=== PATIENT | male | born 1960 | race Caucasian/White ===

== ENCOUNTER 2018-03-23 08:48 | Emergency (ER) | payer BC ==
[2018-03-23] MEDS ORDERED: NORMAL SALINE 1000 ML 1,000 ML IV ONE (08:59)
--- NOTE | 2018-03-23 08:59 | ER Document Report ---
ED General - General Chief Complaint: Possible Kidney Stone Stated Complaint: ABDOMINAL PAIN/BLOOD IN URINE Time Seen by Provider: 03/23/18 08:58 Notes: Patient is a 57-year-old male with history of kidney stones that presents to the emergency department for chief complaint of left flank pain. Patient reports that pain started this morning early on, described as severe and sharp, and at the time rated as a 9 out of 10, radiated from the left flank towards the groin. He states he is also noticed blood in the urine over the past 6 weeks, but has not had associated pain. He did see his primary care physician on to have this worked up, and they ordered outpatient studies, but the pain this morning he had made him come to the emergency department. He was not having pain previously. He states that this time though the pain has since resolved to a 2 out of 10, as a dull aching sensation. He denies any associated fevers, ch ills, night sweats, chest pain, shortness of breath, lightheadedness, nausea, vomiting, diarrhea. Past Medical History: Kidney stones, hypertension, GERD Past Surgical History: Cardiac ablation Social History: Admits to smoking cigarettes, admits to occasional alcohol use denies illicit drug use. Family History: Reviewed and noncontributory for presenting illness Allergies: Reviewed, see documented allergy list. REVIEW OF SYSTEMS: Other than noted above, the 12 point review of systems was reviewed with the patient and were negative, all pertinent findings are included in the HPI. PHYSICAL EXAMINATION: Vital signs reviewed, nursing noted reviewed. GENERAL: Well-appearing, well-nourished and in no acute distress. HEAD: Atraumatic, normocephalic. EYES: Eyes appear normal, extraocular movements intact, sclera anicteric, conjunctiva are normal. ENT: nares patent, oropharynx clear without exudates. Moist mucous membranes. NECK: Normal range of motion, supple without lymphadenopathy LUNGS: Breath sounds clear to auscultation bilaterally and equal. No wheezes rales or rhonchi. HEART: Regular rate and rhythm without murmurs ABDOMEN: Soft, very mild CVA tenderness, normoactive bowel sounds. No rebound, guarding, or rigidity. No masses appreciated. EXTREMITIES: Nontender, good range of motion, no pitting or edema. NEUROLOGICAL: No focal neurological deficits. Moves all extremities spontaneously Motor and sensory grossly intact on exam. PSYCH: Normal mood, normal affect. SKIN: Warm, Dry, normal turgor, no rashes or lesions noted on exposed skin TRAVEL OUTSIDE OF THE [place] IN LAST 30 DAYS: No - Related Data Allergies/Adverse Reactions: No Known Allergies Allergy (Verified 03/23/18 08:49) Past Medical History - Social History Smoking Status: Current Every Day Smoker Family History: Reviewed & Not Pertinent Physical Exam - Vital signs Vitals: Temp Pulse Resp BP Pulse Ox 98.2 F 78 14 143/94 H 98 03/23/18 08:53 03/23/18 08:53 03/23/18 08:53 03/23/18 08:53 03/23/18 08:53 Course - Re-evaluation Re-evalutation: Patient seen and examined vital signs reviewed. Laboratory data and imaging were ordered as appropriate for the patient's pre senting symptoms and complaint, with consideration of any critical or life threatening conditions that may be associated with their obtained history and exam as noted above. Patient was treated with IV fluids and Toradol Results were reviewed when available and demonstrated normal renal function, no anemia, he did have a leukocytosis, urinalysis was ordered, and CT of the abdomen and pelvis without contrast did demonstrate a 6 mm x 6 mm x 9 mm stone noted in the left proximal ureter. Urine was grossly bloody. UA reviewed, no evidence of infection, no bacteria, leuk esterase or nitrites, antibiotics not indicated at this time. The patient was re-evaluated and was stable, pain was controlled. Evaluation was most consistent with left ureteral stone, gross hematuria, I discussed with the patient results, he states he does have a urologist, that he can call tomorrow, to set up an appointment, I believe this patient will likely need lithotripsy as he does have a large proximal ureteral stone, he was agreeable with this plan of care, was given instruction including development of fevers, worsening pain, not controlled at home to return to the emergency department, given a prescription for Flomax, he states that he has pain medication at home to take if needed. Results were discussed with the patient at this point, after careful consideration I feel that that patient can be discharged from the emergency department, the patient was educated treatments and reasons to return to the emergency department based on their presumed diagnosis as noted above, they were advised to followup with a primary care physician in 2-3 days. Patient was agreeable to plan of care. *Note is created using voice recognition software and may contain spelling, syntax or grammatical errors. Laboratory 03/23/18 03/23/18 09:20 09:20 WBC 15.8 H RBC 5.58 H Hgb 17.4 H Hct 49.8 MCV 89 MCH 31.2 MCHC 34.9 RDW 13.1 Plt Count 199 Total Counted 100 Seg Neutrophils % Not Reportable Seg Neuts % (Manual) 88 H Lymphocytes % Not Reportable Lymphocytes % (Manual) 7 L Monocytes % Not Reportable Monocytes % (Manual) 3 Eosinophils % Not Reportable Eosinophils % (Manual) 0 Basophils % Not Reportable Basophils % (Manual) 2 Absolute Neutrophils Not Reportable Abs Neuts (Manual) 13.9 H Absolute Lymphocytes Not Reportable Abs Lymphs (Manual) 1.1 Absolute Monocytes Not Reportable Abs Monocytes (Manual) 0.5 Absolute Eosinophils Not Reportable Absolute Eos (Manual) 0.0 Absolute Basophils Not Reportable Abs Basophils (Manual) 0.3 H Platelet Comment ADEQUATE RBC Morph Comment NORMO-CYTIC/CHROMIC Sodium 138.1 Potassium 4.4 Chloride 103 Carbon Dioxide 24 Anion Gap 11 BUN 17 Creatinine 1.04 Est GFR ( Amer) > 60 Est GFR (Non-Af Amer) > 60 Glucose 163 H Calcium 10.0 Total Bilirubin 0.6 Direct Bilirubin 0.2 Neonat Total Bilirubin Not Reportable Neonat Direct Bilirubin Not Reportable Neonat Indirect Bili Not Reportable AST 21 ALT 15 L Alkaline Phosphatase 68 Total Protein 6.6 Albumin 4.6 Lipase 43[address] 03/23/18 09:43 IMPRESSION: 1. Evidence of a 0.6 x 0.6 x 0.9 cm mid left ureteral calculus with associated ectasia left upper collecting system and proximal left ureter. 2. Prostatomegaly. - Vital Signs Vital signs: Temp Pulse Resp BP Pulse Ox 98.3 F 66 18 142/96 H 97 03/23/18 11:24 03/23/18 11:24 03/23/18 11:24 03/23/18 11:24 03/23/18 11:24 - Laboratory Result Diagrams: 03/23/18 09:20 03/23/18 09:20 Laboratory results interpreted by me: 03/23/18 03/23/18 03/23/18 09:20 09:20 10:30 WBC 15.8 H RBC 5.58 H Hgb 17.4 H Seg Neuts % (Manual) 88 H Lymphocytes % (Manual) 7 L Abs Neuts (Manual) 13.9 H Abs Basophils (Manual) 0.3 H Glucose 163 H ALT 15 L Urine Protein 100 H Urine Glucose (UA) 50 H Urine Blood LARGE H Discharge - Discharge Clinical Impression: Ureteral stone Hematuria Qualifiers: Hematuria type: gross Qualified Code(s): R31.0 - Gross hematuria Condition: Stable Disposition: HOME, SELF-CARE Instructions: Kidney Stone ([facility]) Additional Instructions: Please take the prescribed Flomax as directed, daily, and also take the Zofran if needed for nausea, and take your previously prescribed pain medication if needed at home, please follow-up with urology, if you cannot get a hold of your urologist or get an early enough appointment, I provided a list of the urology groups in the area. [email or web address] [address] [email or web address] [address] [facility] [address] [email or web address] [address] If you develop fevers, sweats, or pain not controlled at home, or continued vomiting, do not hesitate to return immediately to the emergency department to be reevaluated. Prescriptions: Ondansetron [Zofran Odt 4 mg Tablet] 1 tab PO Q8H PRN #15 tab.rapdis PRN Reason: For Nausea/Vomiting Tamsulosin HCl [Flomax 0.4 mg Cap.sr] 0.4 mg PO DAILY #7 cap.sr.24h
[2018-03-23] MEDS ORDERED: KETOROLAC TROMETHAMINE INJ/PF 30 MG/1 ML SDV IV ONE (09:13)
[2018-03-23 09:53] LABS: ALANINE AMINOTRANSFERASE 15 U/L (21-72); ALBUMIN 4.6 g/dL (3.5-5.0); ALKALINE PHOSPHATASE 68 U/L (38-126); ANION GAP 11 (5-19); ASPARTATE AMINO TRANSFERASE 21 U/L (17-59); BILIRUBIN,DIRECT 0.2 mg/dL (0.0-0.4); BILIRUBIN,TOTAL 0.6 mg/dL (0.2-1.3); BLOOD UREA NITROGEN 17 mg/dL (7-20); CARBON DIOXIDE 24 mmol/L (22-30); CHLORIDE 103 mmol/L (98-107); GLUCOSE 163 mg/dL (75-110); LIPASE 43.2 U/L (23-300); POTASSIUM 4.4 mmol/L (3.6-5.0); SODIUM 138.1 mmol/L (137-145); TOTAL PROTEIN 6.6 g/dL (6.3-8.2)
[2018-03-23 09:55] LABS: HEMATOCRIT 49.8 % (37.9-51.0); HEMOGLOBIN 17.4 g/dL (13.5-17.0); MEAN CORPUSCULAR HEMOGLOBIN 31.2 pg (27.0-33.4); MEAN CORPUSCULAR HGB CONC 34.9 g/dL (32.0-36.0); MEAN CORPUSCULAR VOLUME 89 fl (80-97); PLATELET COUNT 199 10^3/uL (150-450); RED BLOOD COUNT 5.58 10^6/uL (4.35-5.55); RED CELL DISTRIBUTION WIDTH 13.1 % (11.5-14.0); WHITE BLOOD COUNT 15.8 10^3/uL (4.0-10.5)
[2018-03-23 10:14] LABS: ABSOLUTE LYMPHOCYTES# (MANUAL) 1.1 10^3/uL (0.5-4.7); ABSOLUTE MONOCYTES # (MANUAL) 0.5 10^3/uL (0.1-1.4); ABSOLUTE NEUTROPHILS# (MANUAL) 13.9 10^3/uL (1.7-8.2); BASOPHILS % (MANUAL) 2 % (0-2); EOSINOPHILS % (MANUAL) 0 % (0-6); LYMPHOCYTES % (MANUAL) 7 % (13-45); MONOCYTES % (MANUAL) 3 % (3-13); PLATELET COMMENT ADEQUATE; RBC MORPHOLOGY COMMENT NORMO-CYTIC/CHROMIC; SEGMENTED NEUTROPHILS % (MAN) 88 % (42-78); TOTAL CELLS COUNTED 100
--- NOTE | 2018-03-23 10:19 | RADIOLOGY REPORT (SQ) ---
EXAM DESCRIPTION: CT LTD RENAL STONE PROTOCOL ON COMPLETED DATE/TIME: 03/23/2018 10:00 am REASON FOR STUDY: left flank pain, hematuria COMPARISON: None. TECHNIQUE: CT scan of the abdomen and pelvis performed without intravenous or oral contrast. Images reviewed with lung, soft tissue, and bone windows. Reconstructed coronal and sagittal MPR images revi ewed. All images stored on PACS. All CT scanners at this facility use dose modulation, iterative reconstruction, and/or weight based d osing when appropriate to reduce radiation dose to as low as reasonably achievable (ALARA). [facility]: Dose Right [facility]: CareDose [facility]: Dose Right [facility]: Teradose 4D [facility]: [employer] RADIATION DOSE: CT Rad equipment meets quality standard of care and radiation dose reduction techniq ues were employed. CTDIvol: 10.6 mGy. DLP: 640 mGy-cm.mGy. LIMITATIONS: None. FINDINGS: LOWER CHEST: Chronic interstitial changes in lung bases. NON-CONTRASTED LIVER, SPLEEN, ADRENALS: Liver: No abnormality. Spleen: No abnormality. Adrenals: No abnormality. PANCREAS: No abnormality. GALLBLADDER: No abnormality. RIGHT KIDNEY AND URETER: No abnormality. LEFT KIDNEY AND URETER: There is a ectasia of the left upper collecting system and proximal left uret er down to a 0.6 x 0.6 by 0.9 cm calculus mid left ureter. Soft tissue stranding surrounds the left kidney and proximal left ureter. AORTA AND RETROPERITONEUM: Atherosclerotic changes of the abdominal aorta and iliac vessels. No retr operitoneal masses or adenopathy. BOWEL AND PERITONEAL CAVITY: Colonic diverticulosis descending and rectosigmoid colon. Normal append ix. PELVIS, BLADDER, AND ABDOMINAL WALL:Prostatic: No abnormality. Urinary bladder: No abnormality. BON ES: No significant findings. OTHER: No other significant finding. IMPRESSION: 1. Evidence of a 0.6 x 0.6 x 0.9 cm mid left ureteral calculus with associated ectasia left upper collecting system and proximal left ureter. 2. Prostatomegaly. COMMENT: Quality ID # [id number]: Final reports with documentation of one or more dose reduction techniques (e.g., Automated exposure control, adjustment of the mA and/or kV according to patient size, use of iterative reconstruction technique) TECHNICAL DOCUMENTATION: JOB ID: [id number] SC-[id number] 2010 [employer]- All Rights Reserved Reading location - IP/workstation name: [email or web address]
[2018-03-23 10:58] LABS: APPEARANCE,URINE CLEAR; BILIRUBIN,URINE NEGATIVE (NEGATIVE); GLUCOSE, URINE 50 mg/dL (NEGATIVE); KETONES,URINE NEGATIVE (NEGATIVE); LEUKOCYTE ESTERASE,URINE NEGATIVE (NEGATIVE); NITRITE,URINE NEGATIVE (NEGATIVE); PROTEIN,URINE 100 mg/dL (NEGATIVE); URINE SPECIFIC GRAVITY 1.011; UROBILINOGEN,URINE NEGATIVE mg/dL (<2.0)
[2018-03-23 11:03] LABS: COLOR,URINE RED
[2018-03-23 11:28] VITALS: BP 142/96
== END 2018-03-23 11:28 | disposition home or self-care (01) ==
LOC: ER 08:48
DX: N20.1 Calculus of ureter (principal); N40.1 Benign prostatic hyperplasia with lower urinary tract symptoms; R31.0 Gross hematuria; I10 Essential (primary) hypertension; F17.210 Nicotine dependence, cigarettes, uncomplicated; D72.829 Elevated white blood cell count, unspecified
CPT/HCPCS: 99284; 96361; 96374; 36415; 83690; 85025; 80053; 81001; 76380; J1885; J7030

== ENCOUNTER 2019-12-19 07:24 | Emergency (ER) | payer BC ==
--- NOTE | 2019-12-19 08:31 | EKG REPORT ---
SEVERITY:- ABNORMAL ECG - SINUS RHYTHM VENTRICULAR PREMATURE COMPLEX LEFT ATRIAL ABNORMALITY LEFT BUNDLE BRANCH BLOCK : Confirmed by: Kirby Macedo MD 19-Dec-2019 08:30:17
[2019-12-19 08:56] LABS: APPEARANCE,URINE CLEAR; BILIRUBIN,URINE NEGATIVE (NEGATIVE); COLOR,URINE YELLOW; GLUCOSE, URINE NEGATIVE (NEGATIVE); KETONES,URINE NEGATIVE (NEGATIVE); LEUKOCYTE ESTERASE,URINE TRACE (NEGATIVE); NITRITE,URINE NEGATIVE (NEGATIVE); PROTEIN,URINE NEGATIVE (NEGATIVE); URINE SPECIFIC GRAVITY 1.009; UROBILINOGEN,URINE NEGATIVE mg/dL (<2.0)
[2019-12-19 08:58] LABS: ABSOLUTE BASOPHILS # (AUTO) 0.1 10^3/uL (0.0-0.2); ABSOLUTE EOSINOPHILS # (AUTO) 0.1 10^3/uL (0.0-0.6); ABSOLUTE MONOCYTES (AUTO) 0.7 10^3/uL (0.1-1.4); ABSOLUTE NEUT (AUTO) 9.6 10^3/uL (1.7-8.2); BASOPHILS % (AUTO) 0.5 % (0-2); HEMATOCRIT 51.9 % (37.9-51.0); HEMOGLOBIN 18.3 g/dL (13.5-17.0); LYMPHOCYTES % (AUTO) 8.8 % (13-45); MEAN CORPUSCULAR HEMOGLOBIN 31.9 pg (27.0-33.4); MEAN CORPUSCULAR HGB CONC 35.3 g/dL (32.0-36.0); MEAN CORPUSCULAR VOLUME 90 fl (80-97); PLATELET COUNT 165 10^3/uL (150-450); RED BLOOD COUNT 5.74 10^6/uL (4.35-5.55); RED CELL DISTRIBUTION WIDTH 13.4 % (11.5-14.0); SEGMENTED NEUTROPHILS % (AUTO) 83.7 % (42-78); TOTAL CELLS COUNTED % (AUTO) 100 %; WHITE BLOOD COUNT 11.5 10^3/uL (4.0-10.5)
[2019-12-19 09:13] LABS: ALBUMIN 4.4 g/dL (3.5-5.0); ALKALINE PHOSPHATASE 66 U/L (38-126); ANION GAP 10 (5-19); ASPARTATE AMINO TRANSFERASE 21 U/L (17-59); BILIRUBIN,DIRECT 0.3 mg/dL (0.0-0.4); BILIRUBIN,TOTAL 1.3 mg/dL (0.2-1.3); BLOOD UREA NITROGEN 14 mg/dL (7-20); CALCIUM 9.5 mg/dL (8.4-10.2); CARBON DIOXIDE 23 mmol/L (22-30); CHLORIDE 105 mmol/L (98-107); CREATINE KINASE 109 U/L (55-170); GLUCOSE 132 mg/dL (75-110); POTASSIUM 4.5 mmol/L (3.6-5.0); TOTAL PROTEIN 6.6 g/dL (6.3-8.2)
--- NOTE | 2019-12-19 09:13 | RADIOLOGY REPORT (SQ) ---
EXAM DESCRIPTION: CHEST SINGLE VIEW IMAGES COMPLETED DATE/TIME: 12/19/2019 8:42 am REASON FOR STUDY: bed 7 short of breath COMPARISON: None. FINDINGS: One view chest AP portable upright. Cardiomegaly with mild interstitial edema. No suggestion of consolidating pneumonia or large effusio n. No pneumothorax. TECHNICAL DOCUMENTATION: JOB ID: [id number] Reading location - IP/workstation name: [email or web address]
[2019-12-19 09:23] LABS: CREATINE KINASE MB 1.74 ng/mL (<4.55); TROPONIN I 0.014 ng/mL
[2019-12-19] MEDS ORDERED: FUROSEMIDE INJ/PF 40 MG/4 ML SDV IV ONE (11:49)
[2019-12-19] MEDS ORDERED: NITROGLYCERIN 2% OINTMENT 1 GM PACKET TP ONE (11:49)
[2019-12-19] MEDS ORDERED: ONDANSETRON HCL INJ/PF 4 MG/2 ML SDV IV ONE (11:49)
--- NOTE | 2019-12-19 14:14 | ER Document Report ---
Entered by MARCY DEWITT SCRIBE 12/19/19 0832 Acting as scribe for:OVIDIO GOMEZ MD ED Respiratory Problem - General Chief Complaint: Shortness Of Breath Stated Complaint: SHORTNESS OF BREATH/CHEST PRESSURE Mode of Arrival: Ambulatory Information source: Patient Notes: This 59 year old male patient with a history of hypertension presents to the ED today via POV for evaluation of sudden onset shortness of breath and chest tightness that started around 0200 this morning. Patient reports shortness of breath when he is lying down, stating that it feels like he can't breath in. No chest tightness at this time. He mentions that he washed and painted his boat yesterday which is not unusual for him. He is a current every day smoker. Denies fever, nausea, vomiting, or diarrhea. TRAVEL OUTSIDE OF THE [place] IN LAST 30 DAYS: No - Related Data Allergies/Adverse Reactions: No Known Allergies Allergy (Verified 12/19/19 08:20) Past Medical History - General Information source: Patient, [facility] Records - Social History Smoking Status: Current Every Day Smoker Smoking Education Provided: No Family History: Reviewed & Not Pertinent Patient has suicidal ideation: No Patient has homicidal ideation: No - Past Medical History Cardiac Medical History: Reports: Hx Hypertension Renal/ Medical History: Reports: Hx Kidney Stones GI Medical History: Reports: Hx Gastroesophageal Reflux Disease Past Surgical History: Reports: Hx Cardiac Surgery - ablation for nodes Review of Systems - Review of Systems Constitutional: See HPI. denies: Fever EENT: No symptoms reported Cardiovascular: See HPI, Chest pain - tightness, Orthopnea Respiratory: See HPI, Short of breath Gastrointestinal: See HPI. denies: Diarrhea, Nausea, Vomiting Genitourinary: No symptoms reported Male Genitourinary: No symptoms reported Musculoskeletal: No symptoms reported Skin: No symptoms reported Hematologic/Lymphatic: No symptoms reported Neurological/Psychological: No symptoms reported -: Yes All other systems reviewed and negative Physical Exam - Vital signs Vitals: Temp Pulse Resp BP Pulse Ox 97.8 F 93 18 126/89 H 95 12/19/19 07:37 12/19/19 07:37 12/19/19 07:37 12/19/19 07:37 12/19/19 07:37 - General General appearance: Alert - Speaks in a raspy voice due to recurrent GERD per patient In distress: None - HEENT Head: Normocephalic, Atraumatic Eyes: Normal Pupils: PERRL - Respiratory Respiratory status: No respiratory distress Chest status: Nontender Breath sounds: Rales - Minimal rales in the bases Chest palpation: Normal - Cardiovascular Rhythm: Regular Heart sounds: Normal auscultation Murmur: No - Abdominal Inspection: Normal Distension: No distension Bowel sounds: Normal Tenderness: Nontender - Abdomen soft Organomegaly: No organomegaly - Back Back: Normal, Nontender - Extremities General upper extremity: Normal inspection General lower extremity: Normal inspection. No: Edema - Neurological Neuro grossly intact: Yes Orientation: AAOx4 Hortencia Coma Scale Eye Opening: Spontaneous Webster Coma Scale Verbal: Oriented Webster Coma Scale Motor: Obeys Commands Webster Coma Scale Total: 15 - Psychological Associated symptoms: Normal affect, Normal mood - Skin Skin Temperature: Warm Skin Moisture: Dry Skin Color: Normal Course - Re-evaluation Re-evalutation: 12/19/19 11:48 Received faxed medical records from [facility]. Patient had x2 EKGs done in 04/2018 that showed a left bundle branch block. 12/19/19 14:09 Patient resting comfortably not showing any acute processes this time patient is breathing clear voice is clear not showing any signs of distress denies any chest pain. - Vital Signs Vital signs: Temp Pulse Resp BP Pulse Ox 97.8 F 93 20 126/95 H 95 12/19/19 07:37 12/19/19 07:37 12/19/19 10:30 12/19/19 10:30 12/19/19 10:30 12/19/19 14:10 Vital signs stable blood pressure 126/95 no diastolic hypertension noted. - Laboratory Result Diagrams: 12/19/19 08:15 12/19/19 08:15 Laboratory results interpreted by me: 12/19/19 12/19/19 12/19/19 08:15 08:15 08:15 WBC 11.5 H RBC 5.74 H Hgb 18.3 H Hct 51.9 H Lymph % (Auto) 8.8 L Absolute Neuts (auto) 9.6 H Seg Neutrophils % 83.7 H Glucose 132 H NT-Pro-B Natriuret Pep Ur Leukocyte Esterase TRACE H 12/19/19 08:15 WBC RBC Hgb Hct Lymph % (Auto) Absolute Neuts (auto) Seg Neutrophils % Glucose NT-Pro-B Natriuret Pep 1250 H Ur Leukocyte Esterase Laboratory shows a BNP of 1250 and borderline elevations in troponin at 0.014 an d repeated was 0.017. - Diagnostic Test Radiology reviewed: Image reviewed, Reports reviewed Radiology results interpreted by me: 12/19/19 14:11 Test x-ray shows mild interstitial edema and cardiomegaly. No evidence of any pneumonia. - EKG Interpretation by Me Additional EKG results interpreted by me: 12/19/19 14:13 Twelve-lead EKG shows normal sinus rhythm rate of 97 occasional PVC. Left atrial abnormality and a left bundle branch block. Left bundle branch block is not new. [place] intervals within normal range QRS shows a widened QRS with a left bundle branch block and the QT interval is prolonged. Patient has a left axis deviation. - Consults Dr. Tillman, Bever[employer] Time consulted: 13:51 Reason for consultation: 12/19/19 13:52 CHF, LBBB, Troponin leak Consulted provider: follow-up in office Discharge - Discharge Clinical Impression: LBBB (left bundle branch block), Essential hypertension, Congestive heart failure Condition: Stable Disposition: HOME, SELF-CARE Additional Instructions: Congestive Heart Failure You have been diagnosed as having congestive heart failure (CHF). CHF occurs when the heart is unable to pump blood efficiently, leading to fluid buildup in the veins and lungs. Typical symptoms are swelling of the legs, shortness of breath on minor exertion, and fatigue. CHF is treated with salt restriction, medicine to eliminate excess water and salt from the body, and medication to help the heart contract more efficiently. Eliminate added salt and salty foods in your diet. Decrease your activity until excess fluid has been eliminated. It will also be helpful to raise the head of your bed so you can sleep more easily. Keep a daily record of your weight. This will help your physician monitor your progress. Once extra water has been eliminated, light aerobic exercise da jung -- such as walking -- will be helpful (unless your physician has told you to restrict activity for other reasons). Be sure to follow up with the physician as instructed. Contact the doctor at once if you worsen in any way. No new prescriptions. Continue to use salt sparingly. Call Dr. Tillman on Saturday morning his telephone number is area code [phone] If you learn or find any information from the other hospitals that you can remember to obtain information to share with Dr. Tillman this is his fax number area code [phone] Forms: Smoking Cessation Education, Elevated Blood Pressure Referrals: SYBIL TILLMAN MD [ACTIVE STAFF] - 12/21/19 12:00 pm I personally performed the services described in the documentation, reviewed and edited the documentation which was dictated to the scribe in my presence, and it accurately records my words and actions.
[2019-12-19 19:05] VITALS: BP 131/96
== END 2019-12-19 13:35 | disposition home or self-care (01) ==
LOC: ER 07:24
DX: I11.0 Hypertensive heart disease with heart failure (principal); I50.9 Heart failure, unspecified; I44.7 Left bundle-branch block, unspecified; I49.3 Ventricular premature depolarization; R06.02 Shortness of breath; R07.89 Other chest pain; F17.200 Nicotine dependence, unspecified, uncomplicated; K21.9 Gastro-esophageal reflux disease without esophagitis
CPT/HCPCS: 93005; 99285; 96374; 36415; 87040; 82553; 82550; 85025; 80053; 81001; 84484; 83880; 71045; 93010; J1940